=== PATIENT | male | born 1950 | race American Indian/Alaskan Native ===

== ENCOUNTER 2017-05-27 10:54 | Outpatient (CLI) | payer MEDICARE ==
[2017-05-27 11:33] LABS: Blood Urea Nitrogen 26 mg/dL (9-20)
[2017-05-27] MEDS ORDERED: NACL ONE ×2 (12:14→14:17)
[2017-05-27] MEDS ORDERED: BENADRYL ONE (13:56)
[2017-05-27] MEDS ORDERED: PEPCID IV ONE ×2 (13:57→14:00)
[2017-05-27] MEDS ORDERED: BENADRYL IV ONE (14:00)
--- NOTE | 2017-05-27 19:14 | Cat Scan Report ---
FINAL REPORT PROCEDURE: CT ANGIO ABD/FEMORAL ABD AORTA TECHNIQUE: Computerized axial tomographic angiography of the abdomen, pelvis and aortoiliac system with bilateral lower extremity runoff was performed after the IV injection of nonionic iodinated contrast including image processing.The image data was postprocessed using 2-dimensional multiplanar reformatted (MPR) and 3-dimensional (MIP and/or volume rendered) techniques. HISTORY: EMBOLISM AND THROMBOSIS OF ILIAC ARTERY COMPARISON: No prior studies are available for comparison. FINDINGS: Small amount of dependent atelectasis seen in the lung bases. Lung bases otherwise are unremarkable. There appears to be a small dense calcifications suggesting a granuloma in the right lobe of the liver. Small low-density nodule measuring under a centimeters seen in the right lobe of the liver superior lateral appears represent a small hepatic cyst. A 2nd hepatic cyst also appears to be present measuring 9 millimeters in the right lobe of the liver inferiorly laterally. The liver is otherwise unremarkable. The gallbladder, the adrenal glands, the pancreas and the spleen are unremarkable. The kidneys, ureters and urinary bladder are unremarkable. No focal bowel abnormalities are identified. No evidence of bowel obstruction ascites or free intraperitoneal gas. There is nonspecific mild diffuse prostate enlargement. Small sclerotic densities seen in the left ischium suggesting a bone island. Degenerative changes are seen in the lumbar spine. No acute bony abnormalities are identified. Atherosclerotic changes are seen throughout the abdominal aorta. No aneurysm is visualized. There is a large amount of mural thrombus present in the infrarenal abdominal aorta narrowing the lumen of the vessel up to 70 percent. There is occlusion of the left common iliac artery, the left internal and external iliac artery. There is revascularization of the distal external iliac artery on the left. The superficial femoral artery on the left is occluded. The profunda is patent. Collateral branches reconstitute the distal superficial femoral artery at the adductor canal. There is reocclusion of the popliteal artery. The tibioperoneal trunk is reconstituted via collateral vessels. There is faint visualization of three-vessel runoff on the left. There is approximately 40 percent stenosis of the right common iliac artery secondary to mural thrombus. There is a metallic stent extending from the right common iliac artery into the external iliac artery which is patent. The profunda is patent. The common femoral artery is occluded. The superficial femoral artery is occluded. Distal superficial femoral artery is reconstituted at the adductor canal. Popliteal artery is patent. Tibioperoneal trunk is patent and there is three-vessel runoff to the foot. Single renal arteries are visualized bilaterally which appear widely patent. Celiac trunk and SMA appear widely patent. Inferior mesenteric artery appears patent. IMPRESSION: There is extensive mural thrombus visualized in the abdominal aorta narrowing the vessel up to 70 percent. There is occlusion of the left common, left internal and left external iliac artery. The superficial femoral artery is also occluded on the left. The profunda is patent via collateral vessels. Small segment of the distal superficial femoral artery is reconstituted via collaterals. This again is occluded and additional collateral vessels reconstitute the popliteal artery. Tibioperoneal trunk and three-vessel runoff appears to be patent on the left. There is 40 percent stenosis of the right common iliac artery secondary to mural thrombus. Metallic stent is seen extending from the right common iliac artery into the external iliac artery which is patent. The common femoral artery and superficial femoral arteries are occluded. The profunda is patent. Distal superficial femoral artery is reconstituted at the adductor canal via collateral flow. Popliteal artery tibioperoneal trunk and three-vessel runoff is patent on the right. Small hepatic cysts and calcified granuloma appear to be visualized in the right lobe of the liver.
== END 2017-05-27 10:55 | disposition home or self-care (01) ==
LOC: CT 10:54
PROVIDERS: ATTEND Radiology Diagnostic Radiology
DX: I65.23 Occlusion and stenosis of bilateral carotid arteries (principal); J98.11 Atelectasis; I74.5 Embolism and thrombosis of iliac artery; I74.09 Other arterial embolism and thrombosis of abdominal aorta; N40.0 Benign prostatic hyperplasia without lower urinary tract symptoms; K76.89 Other specified diseases of liver; M47.896 Other spondylosis, lumbar region; I70.0 Atherosclerosis of aorta; J84.10 Pulmonary fibrosis, unspecified
CPT/HCPCS: 36415; 75635; 82565; 84520; 96374; 96375; J1200; J2930; Q9967

== ENCOUNTER 2017-06-16 05:44 | Inpatient (IN) | payer MEDICARE ==
--- NOTE | 2017-06-15 09:42 | Anesthesia Consultation ---
Anesthesia Consult and Med Hx Date of service: 06/16/17 - Airway Anesthetic Teeth Evaluation: Dentures ROM Head & Neck: Adequate Mental/Hyoid Distance: Adequate Mallampati Class: Class II Intubation Access Assessment: Good - Pulmonary Exam CTA: Yes - Cardiac Exam Cardiac Exam: RRR - Pre-Operative Health Status ASA Pre-Surgery Classification: ASA3 Proposed Anesthetic Plan: General - Pulmonary Hx Smoking: Yes (CIGARETTES 1 PPD X 53 YRS) Hx Sleep Apnea: No - Cardiovascular System Hx Hypertension: Yes (FOR 20+ YRS) Hx Peripheral Vascular Disease: Yes (claudication) - Central Nervous System CVA: Yes (IN 2014, LEFT SIDED WEAKNESS) Hx Psychiatric Problems: No - Other Systems Hx Cancer: No
[2017-06-15 09:48] LABS: Basophils % (Auto) 0.9 % (0.0-1.8); Eosinophils % (Auto) 2.8 % (0.0-4.3); Hematocrit 37.5 % (35.5-45.6); Hemoglobin 12.9 gm/dl (11.8-15.2); Mean Corpuscular HGB Conc 34 % (32-34); Mean Corpuscular Hemoglobin 32 pg (28-32); Mean Corpuscular Volume 94 fl (84-94); Platelet Count 206 K/mm3 (140-440); Red Cell Distribution Width 13.7 % (13.2-15.2); White Blood Count 5.1 K/mm3 (4.5-11.0)
[2017-06-15 09:52] LABS: BUN/Creatinine Ratio 25.62; Calcium 9.3 mg/dL (8.4-10.2); Chloride 102.3 mmol/L (98-107); Potassium 3.4 mmol/L (3.6-5.0)
[2017-06-15 10:06] LABS: INR 0.97 (0.87-1.13)
--- NOTE | 2017-06-15 17:25 | Admit Criteria Form ---
Admission Criteria Documentation: AMBULATORY SURGERY EXCEPTION CRITERIA Ambulatory Surgery Exception Criteria ( Place 'X' for any and all applicable criteria): Surgery or procedure performed on ambulatory basis may require inpatient stay for[A] ANY ONE of the following(1)(2)(3)(4)(5)(6)(7)(8)(9): [X] I. A preoperative situation, condition, or finding that warrants inpatient stay as indicated by ANY ONE of the following: [] a) Inpatient care needed because of severity of a disease or condition rather than the surgery (eg, severe cardiac or respiratory disease, severe infection) (15) (16 ) (17) (18) [] b) Emergent procedure (eg, angioplasty for acute ischemia)(19) [] c) Complex surgical approach or situation as indicated by ANY ONE of the following(3): [] i) Open approach needed instead of usual endoscopic, transcatheter, or other less invasive procedure [] ii) Difficult approach because of previous operation [] iii) Airway monitoring required after open neck procedures(20)(21) [] iv) Large mass requiring unusually extensive dissection [] v) Additional complicating feature requiring inpatient care (eg, drain management)(22(23): [X] d) Major surgery in a pt with high anesthetic risk as indicated by ANY ONE of the following (2)(3)(5)(7)(8): [X] i) ASA risk class III or higher (severe systemic disease impairing function) [D] [] ii) Advanced age (eg, older than 85 years)(14)(24) [] iii) Symptomatic heart failure(25) [] iv) Symptomatic asthma or COPD(8)(21) [] v) Morbid obesity with hemodynamic or respiratory problems(20)( 21)(26)(27) [] vi) Obstructive sleep apnea(20)(21) [] vii) Former premature infants who are younger than 60 weeks [] viii) High risk for severe postoperative abnormalities (eg, severe postoperative hypocalcemia after parathyroidectomy for severe hyperparathyroidism)(27)( 28) [] ix) Unstable angina(25) [] e) Drug-related risk requiring inpatient stay as indicated by ANY ONE of the following(5)(10)(14)(32)(33) [] i) Procedure requires discontinuing drugs or other therapy (eg , antiarrhythmic medication, antiseizure medication), which necessitates inpatient observation or treatment.(18)(31) [] ii) Major surgery and high risk drug use as indicated by ANY ONE of the following: [] 1) Active abuse of cocaine or similar drug [] 2) Monoamine oxidase inhibitor use [] 3) Other drug identified as posing risk [] f) Inadequate outpatient care situation as indicated by ANY ONE of the following(5)(10)(14)(32)(33) [] i) Patient lives remote from medical facility and procedure has urgent complication potential, and temporary nearby residence cannot be arranged [] ii) Patient will have postprocedure incapacitation and inadequate assistance at home, or alternative level of care cannot be arranged. [] iii) Patient will have long general anesthesia or procedure side effect resolution time, and competent person to stay with patient on first postoperative night at home or alternative level of care cannot be arranged. []iv) Other inadequate outpatient situation that cannot be handled by other means [] II. A perioperative event, condition, or finding that warrants inpatient stay as indicated by ANY ONE of the following (1)(2)(3): [] a) Inadequate physiologic recovery: cardiovascular, respiratory, or hemodynamic status not normal or near preoperative baseline(18) [] b) Hemodynamic instability [] c) Patient not alert with near normal or baseline mental status [] d) Temperature not normal or as expected and not appropriate for outpatient treatment of condition [] e) Ambulatory or appropriate activity level status not yet achieved post procedure [E](34)(35)(36) [] f) Operative site not appropriate (eg, unexpected or excessive drainage or bleeding) [] g) Postoperative effects not resolved or adequately managed (eg, significant pain or vomiting not appropriate for outpatient or next level of care)(10)(12) [] h) Complicating features requiring inpatient care as indicated by ANY ONE of the following(37): [] i) Severe complications of procedure (eg, bowel injury, airway compromise, vascular injury,severe hemorrhage) [] ii) Extensive (eg, dissection far beyond usual scope of procedure ) or prolonged (eg, 120 minutes beyond usual) surgery needed requiring inpatient postoperative care [] iii) Conversion to an open or complex procedure that requires inpatient care (eg, open vs laparoscopic cholecystectomy, abdominal vs vaginal hysterectomy)(38) [] iv) Comorbid condition or test result identified during or post procedure that requires inpatient care (7) [] v) Malignant hyperthermia(30) [] vi) Other complicating feature requiring inpatient care(22)(23) Inpatient stay may be needed until ALL of the following are present (1)(2)(3)(4) (5)(6)(10)(14)(33)(40): []a) Physiologic recovery: cardiovascular, respiratory, and hemodynamic status normal or near preoperative baseline []b) Hemodynamic stability []c) Patient alert, with near normal or baseline mental status []d) Temperature appropriate: patient afebrile or temperature appropriate for outpt treatment of condition []e) Activity level appropriate: ambulatory or appropriate activity level post procedure []f) Operative site appropriate as indicated by ALL of the following: []i) Site dry or with expected drainage []ii) Any blood noted is as expected for procedure. []g) Postoperative effects resolved or managed as indicated by ALL of the following: []i) Pain management appropriate for outpatient (or next level of) care(10) []ii) Minimal nausea and vomiting: if present, successfully treated with oral medication(12) []iii) Headache, dizziness, or drowsiness (if present) are mild. []h) Voiding status acceptable as indicated by ANY ONE of the following: []i) Voiding spontaneously []ii) No voiding but instructions given for follow-up in 6 to 8 hours []iii) Urinary catheter in place, and instructions given for follow-up []i) Complicating features requiring inpatient care manageable at a lower level of care(37) []j) Comorbid conditions manageable at a lower level of care(37) The original [employer] content created by [employer] has been revised. The portions of the content which have been revised are identified through the use of italic text or in bold, and [facility] [employer] has neither reviewed nor approved the modified material. All other unmodified content is copyright [employer]. Please see references footnoted in the original [employer] edition 2016 Admission Criteria Met: Yes
[~2017-06-16 05:44] MED LIST: PEPCID PO NR; VERSED IV NR
[2017-06-16] MEDS ORDERED: ANCEF/STERILE WATER 2 GM/20 ML 2 GM/20 ML SYRINGE IV NR (06:00)
[2017-06-16] MEDS ORDERED: NACL 0.9% 1000 ML 1,000 ML IV SCH (06:00)
[2017-06-16] MEDS ORDERED: NACL BACTERIOSTATIC INFILTRATI ONE (06:42)
[2017-06-16] MEDS ORDERED: VERSED ONE ×2 (07:03→07:26)
[2017-06-16] MEDS ORDERED: DIPRIVAN 10 MG/ML IV ONE (07:22)
[2017-06-16] MEDS ORDERED: SUBLIMAZE ONE (07:24)
[2017-06-16] MEDS ORDERED: DILAUDID IV NR (07:30)
[2017-06-16] MEDS ORDERED: ACD-A 500 ML IV ONE (07:32)
[2017-06-16] MEDS ORDERED: MARCAINE 0.5% 0 ML INFILTRATI ONE (07:33)
[2017-06-16] MEDS ORDERED: PROTAMINE SULFATE ONE (07:33)
[2017-06-16] MEDS ORDERED: NACL P/F VIAL (10 ML) 0 ML ONE (07:33)
[2017-06-16] MEDS ORDERED: RIFADIN ONE (07:33)
[2017-06-16] MEDS ORDERED: PAPAVERINE ONE (07:33)
[2017-06-16] MEDS ORDERED: THROMBIN (BOVINE) TP ONE (07:34)
[2017-06-16] MEDS ORDERED: HEPARIN 10,000 UNITS/10 ML ONE (07:34)
[2017-06-16] MEDS ORDERED: GELFOAM TP ONE (07:34)
[2017-06-16 09:45] VITALS: BP 118/71
[2017-06-17] MEDS ORDERED: LOVENOX SUB-Q SCH (10:00)
== END 2017-06-16 09:55 | disposition home or self-care (01) | DRG 301 ==
LOC: 3A 05:44
PROVIDERS: ADMIT Surgery Vascular Surgery; ATTEND Surgery Vascular Surgery
DX: I73.9 Peripheral vascular disease, unspecified (principal); F17.210 Nicotine dependence, cigarettes, uncomplicated; I10 Essential (primary) hypertension; Z53.8 Procedure and treatment not carried out for other reasons
CPT/HCPCS: 36415; 80048; 85025; 85610; 86850; 86900; 86901; A4649; J0690; J1170; J1644; J2250; J2440; J2704; J2720; J3010; J3490; J7030

== ENCOUNTER 2017-07-15 17:39 | Emergency (ER) | payer MEDICARE ==
[2017-07-15 18:13] LABS: Basophils % (Auto) 0.9 % (0.0-1.8); Eosinophils % (Auto) 4.5 % (0.0-4.3); Hematocrit 35.8 % (35.5-45.6); Hemoglobin 11.6 gm/dl (11.8-15.2); Mean Corpuscular HGB Conc 32 % (32-34); Mean Corpuscular Hemoglobin 30 pg (28-32); Mean Corpuscular Volume 93 fl (84-94); Platelet Count 316 K/mm3 (140-440); Red Blood Count 3.87 M/mm3 (3.65-5.03); Red Cell Distribution Width 14.6 % (13.2-15.2); White Blood Count 5.4 K/mm3 (4.5-11.0)
[2017-07-15] MEDS ORDERED: ASPIRIN PO ONE (18:15)
[2017-07-15] MEDS ORDERED: NITRO-BID 2% TP ONE (18:15)
[2017-07-15] MEDS ORDERED: NACL 0.9% 500 ML 500 ML IV ONE (18:15)
[2017-07-15 18:22] LABS: Anion Gap 18 mmol/L; BUN/Creatinine Ratio 11.81; Blood Urea Nitrogen 13 mg/dL (9-20); Calcium 9.2 mg/dL (8.4-10.2); Carbon Dioxide 32 mmol/L (22-30); Chloride 95.1 mmol/L (98-107); Glucose 110 mg/dL (75-100); Potassium 3.8 mmol/L (3.6-5.0); Sodium 141 mmol/L (137-145)
[2017-07-15 18:40] VITALS: BP 128/71
--- NOTE | 2017-07-15 18:41 | Emergency Department Report ---
ED Chest Pain HPI - General Chief Complaint: Chest Pain Stated Complaint: ABDOMINAL PAIN (INCISION) Time Seen by Provider: 07/15/17 18:06 Source: patient, EMS Mode of arrival: Stretcher Limitations: No Limitations - History of Present Illness MD Complaint: chest pain -: This morning Onset: during rest Pain Radiation: none Severity: mild Severity scale (0 -10): 1 Consistency: now resolved (lasting 5 seconds , and then he lay donw on his left side and the pain got better) Improves With: nothing re: denies: nausea, vomting, diaphoresis, dyspnea, sense of impending doom Other Symptoms: denies: cough, fever, syncope, rash, acid taste in mouth, leg swelling, palpitations, burping Aspirin use within the Past 7 Days: (1) Yes - Related Data Home Medications Medication Instructions Recorded Confirmed Last Taken AtorvaSTATin [Lipitor] 80 mg PO QHS 06/12/17 06/22/17 06/23/17 Cholecalciferol (Vitamin D3) 1,000 unit PO QDAY 06/12/17 06/22/17 06/23/17 [Children's Vitamin D3 1,000 unit CHEW] Cyanocobalamin [Vitamin B-12] 100 mcg PO DAILY 06/12/17 06/22/17 06/23/17 Gabapentin [Neurontin] 300 mg PO QHS 06/12/17 06/22/17 06/23/17 Hydrochlorothiazide [HCTZ] 25 mg PO QDAY 06/12/17 06/22/17 06/23/17 Losartan [Cozaar] 100 mg PO QDAY 06/12/17 06/22/17 06/23/17 amLODIPine [Norvasc] 10 mg PO DAILY 06/12/17 06/22/17 06/23/17 Latanoprost 0.005% [Xalatan 0.005%] 1 drop OU QPM 06/15/17 06/22/17 06/23/17 Clopidogrel Bisulfate [Plavix] 75 mg PO QDAY 06/16/17 06/22/17 06/16/17 06:00 Previous Rx's Medication Instructions Recorded Last Taken Type HYDROcodone/APAP 5-325 [[place] 1 each PO Q6HR PRN #40 tablet 07/01/17 Unknown Rx 5/325] Allergies Allergy/AdvReac Type Severity Reaction Status Date / Time IV DYE Allergy Hives Uncoded 06/22/17 13:34 Heart Score - HEART Score History: Slightly suspicious EKG: Non-specific Age: > 65 Risk factors: 1-2 risk factors Troponin: < normal limit HEART Score: 4 ED Review of Systems ROS: Stated complaint: ABDOMINAL PAIN (INCISION) Other details as noted in HPI Comment: All other systems reviewed and negative ED Past Medical Hx - Past Medical History Hx Hypertension: Yes Hx Congestive Heart Failure: No Hx Diabetes: No Hx Asthma: No Hx COPD: No Hx HIV: No - Social History Smoking Status: Unknown if ever smoked - Medications Home Medications: Home Medications Medication Instructions Recorded Confirmed Last Taken Type AtorvaSTATin [Lipitor] 80 mg PO QHS 06/12/17 06/22/17 06/23/17 History Cholecalciferol (Vitamin D3) 1,000 unit PO QDAY 06/12/17 06/22/17 06/23/17 History [Children's Vitamin D3 1,000 unit CHEW] Cyanocobalamin [Vitamin B-12] 100 mcg PO DAILY 06/12/17 06/22/17 06/23/17 History Gabapentin [Neurontin] 300 mg PO QHS 06/12/17 06/22/17 06/23/17 History Hydrochlorothiazide [HCTZ] 25 mg PO QDAY 06/12/17 06/22/17 06/23/17 History Losartan [Cozaar] 100 mg PO QDAY 06/12/17 06/22/17 06/23/17 History amLODIPine [Norvasc] 10 mg PO DAILY 06/12/17 06/22/17 06/23/17 History Latanoprost 0.005% [Xalatan 0.005%] 1 drop OU QPM 06/15/17 06/22/17 06/23/17 History Clopidogrel Bisulfate [Plavix] 75 mg PO QDAY 06/16/17 06/22/17 06/16/17 06:00 History HYDROcodone/APAP 5-325 [[place] 1 each PO Q6HR PRN #40 tablet 07/01/17 Unknown Rx 5/325] ED Physical Exam - General Limitations: No Limitations General appearance: alert, in no apparent distress - Head Head exam: Present: atraumatic, normocephalic - Eye Eye exam: Present: normal appearance - ENT ENT exam: Present: normal exam, normal orophraynx, mucous membranes moist - Neck Neck exam: Present: normal inspection - Respiratory Respiratory exam: Present: normal lung sounds bilaterally. Absent: respiratory distress - Cardiovascular Cardiovascular Exam: Present: regular rate, normal rhythm. Absent: systolic murmur, diastolic murmur, rubs, gallop - GI/Abdominal GI/Abdominal exam: Present: soft, normal bowel sounds - Rectal Rectal exam: Present: deferred - Extremities Exam Extremities exam: Present: normal inspection - Back Exam Back exam: Present: normal inspection - Neurological Exam Neurological exam: Present: alert, oriented X3 - Psychiatric Psychiatric exam: Present: normal affect, normal mood - Skin Skin exam: Present: warm, dry, intact, normal color. Absent: rash BRIDGET score - Bridget Score Age > 65: (1) Yes Aspirin use within the Past 7 Days: (1) Yes 3 or more CAD Risk Factors: (0) No 2 or more Angina events in past 24 hrs: (0) No Known CAD with more than 50% Stenosis: (0) No Elevated Cardiac Markers: (0) No ST Deviation Greater than 0.5mm: (0) No BRIDGET Score: 2 ED Medical Decision Making - Lab Data Result diagrams: 07/15/17 17:53 07/15/17 17:53 - EKG Data Interpretation: no acute changes - Radiology Data Radiology results: report reviewed, image reviewed - Medical Decision Making patient doing well, labs negative , wishes to go home has appoinment at 1125 tomorrow am with cardiology. will dc after the refusal of being admitted Critical care attestation.: If time is entered above; I have spent that time in minutes in the direct care of this critically ill patient, excluding procedure time. ED Disposition Clinical Impression: Chest pain Disposition: DC-01 TO HOME OR SELFCARE Is pt being admited?: No Does the pt Need Aspirin: No Condition: Good Instructions: Chest Pain (ED) Referrals: PRIMARY CARE, [Primary Care Provider] - 3-5 Days Time of Disposition: 18:43
--- NOTE | 2017-07-16 08:35 | XRay Report ---
CHEST ONE VIEW INDICATION: Chest pain. COMPARISON: 06/26/2017. FINDINGS: Portable, single, frontal chest radiograph demonstrates stable cardiomediastinal silhouette with nonspecific convex contour prominence along the proximal ascending aorta, though stable since August 2007. Lungs now clear. Left hemidiaphragm minimally elevated. Unremarkable bones. Extrinsic EKG leads. CONCLUSION: No significant acute chest process, as described. Thank you for the opportunity to participate in this patient's care.
== END 2017-07-15 20:06 | disposition home or self-care (01) ==
LOC: ED 17:39
DX: R07.9 Chest pain, unspecified (principal); I10 Essential (primary) hypertension; Z91.041 Radiographic dye allergy status
CPT/HCPCS: 36415; 71010; 80048; 83880; 84484; 85025; 85610; 85730; 99285; J7040

== ENCOUNTER 2017-07-23 13:05 | Outpatient (CLI) | payer MEDICARE ==
[2017-07-23] MEDS ORDERED: XYLOCAINE TOPICAL 2% TP ONE ×3 (13:25→14:33)
[2017-07-23] MEDS ORDERED: XYLOCAINE TOPICAL 4% TP ONE (14:34)
== END 2017-07-23 13:06 | disposition home or self-care (01) ==
LOC: WOUND 13:05
PROVIDERS: ATTEND Nurse Practitioner
DX: I70.243 Atherosclerosis of native arteries of left leg with ulceration of ankle (principal); L97.321 Non-pressure chronic ulcer of left ankle limited to breakdown of skin; I70.213 Atherosclerosis of native arteries of extremities with intermittent claudication, bilateral legs; I10 Essential (primary) hypertension; I73.9 Peripheral vascular disease, unspecified; I25.10 Atherosclerotic heart disease of native coronary artery without angina pectoris; Z86.73 Personal history of transient ischemic attack (TIA), and cerebral infarction without residual deficits; Z87.891 Personal history of nicotine dependence
CPT/HCPCS: 11042; 11045; 87075; 87076; 87116; 87186; G0463

== ENCOUNTER 2017-07-30 13:01 | Outpatient (CLI) | payer MEDICARE ==
[2017-07-30] MEDS ORDERED: XYLOCAINE TOPICAL 4% TP ONE (13:40)
== END 2017-07-30 13:02 | disposition home or self-care (01) ==
LOC: WOUND 13:01
PROVIDERS: ATTEND Nurse Practitioner
DX: I70.243 Atherosclerosis of native arteries of left leg with ulceration of ankle (principal); L97.321 Non-pressure chronic ulcer of left ankle limited to breakdown of skin; E11.51 Type 2 diabetes mellitus with diabetic peripheral angiopathy without gangrene; I25.10 Atherosclerotic heart disease of native coronary artery without angina pectoris; I10 Essential (primary) hypertension; Z86.73 Personal history of transient ischemic attack (TIA), and cerebral infarction without residual deficits; Z87.891 Personal history of nicotine dependence

== ENCOUNTER 2017-08-06 13:17 | Outpatient (CLI) | payer MEDICARE ==
[2017-08-06] MEDS ORDERED: XYLOCAINE TOPICAL 4% TP ONE ×2 (13:39→13:42)
[2017-08-06] MEDS ORDERED: XYLOCAINE TOPICAL 2% TP ONE (14:00)
== END 2017-08-06 13:18 | disposition home or self-care (01) ==
LOC: WOUND 13:17
PROVIDERS: ATTEND Nurse Practitioner
DX: I70.243 Atherosclerosis of native arteries of left leg with ulceration of ankle (principal); L97.321 Non-pressure chronic ulcer of left ankle limited to breakdown of skin; I73.9 Peripheral vascular disease, unspecified; I25.10 Atherosclerotic heart disease of native coronary artery without angina pectoris; I10 Essential (primary) hypertension; Z86.73 Personal history of transient ischemic attack (TIA), and cerebral infarction without residual deficits; Z87.891 Personal history of nicotine dependence

== ENCOUNTER 2017-08-13 13:25 | Outpatient (CLI) | payer MEDICARE ==
[2017-08-13] MEDS ORDERED: XYLOCAINE TOPICAL 4% TP ONE (13:31)
== END 2017-08-13 13:26 | disposition home or self-care (01) ==
LOC: WOUND 13:25
PROVIDERS: ATTEND Nurse Practitioner
DX: I70.243 Atherosclerosis of native arteries of left leg with ulceration of ankle (principal); L97.321 Non-pressure chronic ulcer of left ankle limited to breakdown of skin; I73.9 Peripheral vascular disease, unspecified; I25.10 Atherosclerotic heart disease of native coronary artery without angina pectoris; Z86.73 Personal history of transient ischemic attack (TIA), and cerebral infarction without residual deficits; Z87.891 Personal history of nicotine dependence

== ENCOUNTER 2017-08-20 13:13 | Outpatient (CLI) | payer MEDICARE ==
[2017-08-20] MEDS ORDERED: XYLOCAINE TOPICAL 4% TP ONE ×2 (13:26→14:00)
== END 2017-08-20 13:14 | disposition home or self-care (01) ==
LOC: WOUND 13:13
PROVIDERS: ATTEND Nurse Practitioner
DX: I70.243 Atherosclerosis of native arteries of left leg with ulceration of ankle (principal); L97.321 Non-pressure chronic ulcer of left ankle limited to breakdown of skin; I73.9 Peripheral vascular disease, unspecified; I10 Essential (primary) hypertension; Z86.73 Personal history of transient ischemic attack (TIA), and cerebral infarction without residual deficits; Z87.891 Personal history of nicotine dependence

== ENCOUNTER 2017-08-27 12:52 | Outpatient (CLI) | payer MEDICARE ==
[2017-08-27] MEDS ORDERED: XYLOCAINE TOPICAL 4% TP ONE (12:56)
[2017-08-27] MEDS ORDERED: NACL 0.9% IR ONE (13:57)
== END 2017-08-27 12:53 | disposition home or self-care (01) ==
LOC: WOUND 12:52
PROVIDERS: ATTEND Nurse Practitioner
DX: I70.243 Atherosclerosis of native arteries of left leg with ulceration of ankle (principal); L97.321 Non-pressure chronic ulcer of left ankle limited to breakdown of skin; I10 Essential (primary) hypertension; I73.9 Peripheral vascular disease, unspecified; I25.10 Atherosclerotic heart disease of native coronary artery without angina pectoris; Z86.73 Personal history of transient ischemic attack (TIA), and cerebral infarction without residual deficits; Z87.891 Personal history of nicotine dependence

== ENCOUNTER 2017-09-03 13:29 | Outpatient (CLI) | payer MEDICARE ==
[2017-09-03] MEDS ORDERED: XYLOCAINE TOPICAL 4% TP ONE ×2 (13:35→13:44)
== END 2017-09-03 13:30 | disposition home or self-care (01) ==
LOC: WOUND 13:29
PROVIDERS: ATTEND Nurse Practitioner
DX: I70.243 Atherosclerosis of native arteries of left leg with ulceration of ankle (principal); L97.321 Non-pressure chronic ulcer of left ankle limited to breakdown of skin; I10 Essential (primary) hypertension; I73.9 Peripheral vascular disease, unspecified; I25.10 Atherosclerotic heart disease of native coronary artery without angina pectoris; Z86.73 Personal history of transient ischemic attack (TIA), and cerebral infarction without residual deficits; Z87.891 Personal history of nicotine dependence

== ENCOUNTER 2017-09-10 12:55 | Outpatient (CLI) | payer MEDICARE ==
[2017-09-10] MEDS ORDERED: XYLOCAINE TOPICAL 4% TP ONE (13:05)
== END 2017-09-10 12:56 | disposition home or self-care (01) ==
LOC: WOUND 12:55
PROVIDERS: ATTEND Nurse Practitioner
DX: I70.243 Atherosclerosis of native arteries of left leg with ulceration of ankle (principal); L97.321 Non-pressure chronic ulcer of left ankle limited to breakdown of skin; I10 Essential (primary) hypertension; I25.10 Atherosclerotic heart disease of native coronary artery without angina pectoris; Z86.73 Personal history of transient ischemic attack (TIA), and cerebral infarction without residual deficits; Z87.891 Personal history of nicotine dependence

== ENCOUNTER 2017-09-17 08:49 | Outpatient (CLI) | payer MEDICARE ==
[2017-09-17] MEDS ORDERED: XYLOCAINE TOPICAL 4% TP ONE (09:07)
== END 2017-09-17 08:50 | disposition home or self-care (01) ==
LOC: WOUND 08:49
PROVIDERS: ATTEND Surgery
DX: I70.243 Atherosclerosis of native arteries of left leg with ulceration of ankle (principal); L97.321 Non-pressure chronic ulcer of left ankle limited to breakdown of skin; I25.10 Atherosclerotic heart disease of native coronary artery without angina pectoris; I73.9 Peripheral vascular disease, unspecified; I10 Essential (primary) hypertension; Z86.73 Personal history of transient ischemic attack (TIA), and cerebral infarction without residual deficits; Z87.891 Personal history of nicotine dependence

== ENCOUNTER 2017-09-24 13:08 | Outpatient (CLI) | payer MEDICARE ==
[2017-09-24] MEDS ORDERED: XYLOCAINE TOPICAL 4% TP ONE ×2 (13:21→13:42)
== END 2017-09-24 13:09 | disposition home or self-care (01) ==
LOC: WOUND 13:08
PROVIDERS: ATTEND Nurse Practitioner
DX: I70.243 Atherosclerosis of native arteries of left leg with ulceration of ankle (principal); L97.321 Non-pressure chronic ulcer of left ankle limited to breakdown of skin; I10 Essential (primary) hypertension; I73.9 Peripheral vascular disease, unspecified; I25.10 Atherosclerotic heart disease of native coronary artery without angina pectoris; Z86.73 Personal history of transient ischemic attack (TIA), and cerebral infarction without residual deficits; Z87.891 Personal history of nicotine dependence

== ENCOUNTER 2017-10-01 13:05 | Outpatient (CLI) | payer MEDICARE ==
[2017-10-01] MEDS ORDERED: XYLOCAINE TOPICAL 4% TP ONE (13:42)
[2017-10-02] MEDS ORDERED: XYLOCAINE TOPICAL 4% TP ONE (12:40)
== END 2017-10-01 13:06 | disposition home or self-care (01) ==
LOC: WOUND 13:05
PROVIDERS: ATTEND Nurse Practitioner
DX: I70.243 Atherosclerosis of native arteries of left leg with ulceration of ankle (principal); L97.321 Non-pressure chronic ulcer of left ankle limited to breakdown of skin; I10 Essential (primary) hypertension; I73.9 Peripheral vascular disease, unspecified; I25.10 Atherosclerotic heart disease of native coronary artery without angina pectoris; Z86.73 Personal history of transient ischemic attack (TIA), and cerebral infarction without residual deficits; Z87.891 Personal history of nicotine dependence

== ENCOUNTER 2017-10-15 13:43 | Outpatient (CLI) | payer MEDICARE ==
[2017-10-15] MEDS ORDERED: XYLOCAINE TOPICAL 4% TP ONE (14:11)
== END 2017-10-15 13:44 | disposition home or self-care (01) ==
LOC: WOUND 13:43
PROVIDERS: ATTEND Nurse Practitioner
DX: I70.243 Atherosclerosis of native arteries of left leg with ulceration of ankle (principal); L97.321 Non-pressure chronic ulcer of left ankle limited to breakdown of skin; I25.10 Atherosclerotic heart disease of native coronary artery without angina pectoris; I73.9 Peripheral vascular disease, unspecified; I10 Essential (primary) hypertension; Z86.73 Personal history of transient ischemic attack (TIA), and cerebral infarction without residual deficits; Z87.891 Personal history of nicotine dependence

== ENCOUNTER 2017-10-29 13:32 | Outpatient (CLI) | payer MEDICARE ==
[2017-10-29] MEDS ORDERED: XYLOCAINE TOPICAL 4% TP ONE (13:52)
== END 2017-10-29 13:33 | disposition home or self-care (01) ==
LOC: WOUND 13:32
PROVIDERS: ATTEND Nurse Practitioner
DX: I70.243 Atherosclerosis of native arteries of left leg with ulceration of ankle (principal); I70.213 Atherosclerosis of native arteries of extremities with intermittent claudication, bilateral legs; L97.321 Non-pressure chronic ulcer of left ankle limited to breakdown of skin; I25.10 Atherosclerotic heart disease of native coronary artery without angina pectoris; I10 Essential (primary) hypertension; Z86.73 Personal history of transient ischemic attack (TIA), and cerebral infarction without residual deficits; Z72.0 Tobacco use

== ENCOUNTER 2017-11-05 11:43 | Outpatient (CLI) | payer MEDICARE ==
[2017-11-05] MEDS ORDERED: XYLOCAINE TOPICAL 4% TP ONE ×2 (13:53→14:04)
== END 2017-11-05 11:44 | disposition home or self-care (01) ==
LOC: WOUND 11:43
PROVIDERS: ATTEND Podiatrist
DX: I70.243 Atherosclerosis of native arteries of left leg with ulceration of ankle (principal); I70.213 Atherosclerosis of native arteries of extremities with intermittent claudication, bilateral legs; L97.322 Non-pressure chronic ulcer of left ankle with fat layer exposed; I25.10 Atherosclerotic heart disease of native coronary artery without angina pectoris; B35.1 Tinea unguium; I10 Essential (primary) hypertension; Z86.73 Personal history of transient ischemic attack (TIA), and cerebral infarction without residual deficits; Z72.0 Tobacco use

== ENCOUNTER 2017-11-12 13:36 | Outpatient (CLI) | payer MEDICARE ==
[2017-11-12] MEDS ORDERED: XYLOCAINE TOPICAL 4% TP ONE ×2 (14:27→15:40)
== END 2017-11-12 13:37 | disposition home or self-care (01) ==
LOC: WOUND 13:36
PROVIDERS: ATTEND Nurse Practitioner
DX: I70.243 Atherosclerosis of native arteries of left leg with ulceration of ankle (principal); L97.322 Non-pressure chronic ulcer of left ankle with fat layer exposed; I73.9 Peripheral vascular disease, unspecified; I25.10 Atherosclerotic heart disease of native coronary artery without angina pectoris; I10 Essential (primary) hypertension; Z86.73 Personal history of transient ischemic attack (TIA), and cerebral infarction without residual deficits; Z87.891 Personal history of nicotine dependence

== ENCOUNTER 2017-11-19 13:33 | Outpatient (CLI) | payer MEDICARE ==
[2017-11-19] MEDS ORDERED: XYLOCAINE TOPICAL 2% 5ML TP ONE (13:56)
== END 2017-11-19 13:34 | disposition home or self-care (01) ==
LOC: WOUND 13:33
PROVIDERS: ATTEND Nurse Practitioner
DX: I70.243 Atherosclerosis of native arteries of left leg with ulceration of ankle (principal); L97.322 Non-pressure chronic ulcer of left ankle with fat layer exposed; I10 Essential (primary) hypertension; I25.10 Atherosclerotic heart disease of native coronary artery without angina pectoris; Z87.891 Personal history of nicotine dependence
CPT/HCPCS: 99214; G0463